=== PATIENT | female | born 1955 | race African-American/Black ===

== ENCOUNTER 2016-09-25 11:07 | Inpatient (IN) | payer MEDICAID ==
[~2016-09-25] VITALS: Ht 170.2 cm; Wt 102.1 kg
[2016-09-25] VITALS (10 sets, daily range): BP systolic 121–140
[~2016-09-25 11:07] MED LIST: AMOX500T2; ATOR80TA63 PO; CARI250T9 PO; CYCL7.5T20 PO; IBUP-1517 PO; IPRA4AER INH; LEVO175T7 PO; MULT-920 PO; NORT25CA30 PO; SERT-131 PO; TRAZ-126 PO
[2016-09-25] MEDS ORDERED: NACL 0.9% 1,000 ML IV ONE ×2 (11:45)
[2016-09-25] MEDS ORDERED: ONDANSETRON HCL 4 MG/2 ML VIAL IVP ONE (11:45)
[2016-09-25] MEDS ORDERED: INSULIN REGULAR, HUMAN 10 UNITS/0.1 ML INJ IVP ONE ×2 (11:45→13:00)
[2016-09-25 12:05] LABS: BASOPHILS # (AUTO) 0.4 K/uL (0.0-0.2); BASOPHILS % (AUTO) 3.2 % (0.0-2.0); EOSINOPHILS % (AUTO) 0.1 % (0.0-4.0); HEMATOCRIT 47.5 % (36-48); HEMOGLOBIN 14.9 g/dL (12.0-16.0); LYMPHOCYTES # (AUTO) 2.1 K/uL (1.0-5.5); MEAN CORPUSCULAR HEMOGLOBIN 28 pg (27-31); MEAN CORPUSCULAR HGB CONC 31 % (32-36); MEAN CORPUSCULAR VOLUME 89 fL (79.0-98.0); MONOCYTES # (AUTO) 0.8 K/uL (0.0-1.0); MONOCYTES % (AUTO) 6.2 % (1.7-9.3); NEUTROPHILS # (AUTO) 8.8 K/uL (1.8-7.7); NEUTROPHILS % (AUTO) 73.5 % (40.0-70.0); PLATELET COUNT (AUTO) 380 K/uL (130-430); RED BLOOD CELL COUNT(AUTO) 5.36 MIL/uL (4.2-6.2); RED CELL DISTRIBUTION WIDTH 13.5 % (9.0-15.0); WHITE BLOOD COUNT (AUTO) 12.1 K/uL (4.8-10.8)
[2016-09-25 12:15] LABS: ACETONE, SERUM NEGATIVE (NEGATIVE)
[2016-09-25 12:19] LABS: PROTHROMBIN TIME 10.8 SECS (9.5-12.5)
[2016-09-25 12:24] LABS: ALANINE AMINOTRANSFERASE 23 U/L (12-78); ALBUMIN 3.9 g/dL (3.4-4.8); ANION GAP 10 (5-15); ASPARTATE AMINOTRANSFERASE 13 U/L (10-37); CALCIUM 9.9 mg/dL (8.4-11.0); POTASSIUM 5.7 mmol/L (3.5-5.1); SODIUM SERUM 120 mmol/L (136-145); TOTAL BILIRUBIN 0.6 mg/dL (0.0-1.0); TOTAL PROTEIN, SERUM 8.3 g/dL (6.4-8.3); UREA NITROGEN, BLOOD 40 mg/dL (8-21)
[2016-09-25 12:37] LABS: CHLORIDE 85 mmol/L (98-107)
[2016-09-25 12:39] LABS: GLUCOSE 1280 mg/dL (70-99)
[2016-09-25] MEDS ORDERED: INSULIN REGULAR, HUMAN 100 UNITS in NS 99 ML IV ONE ×4 (13:00→14:00)
[2016-09-25 13:12] LABS: BILIRUBIN,URINE NEGATIVE (NEGATIVE); BLOOD, URINE NEGATIVE (NEGATIVE); CLARITY/URINE CLEAR (CLEAR); COLOR,URINE YELLOW (YELLOW); GLUCOSE,URINE 3+ (NEGATIVE); KETONES,URINE NEGATIVE (NEGATIVE); LEUKOCYTE ESTERASE ,URINE NEGATIVE (NEGATIVE); NITRITE, URINE NEGATIVE (NEGATIVE); PROTEIN URINE NEGATIVE (NEGATIVE); UROBILINOGEN,URINE 0.2 (0.2-1.0)
[2016-09-25 13:42] LABS: BACTERIA,URINE RARE /HPF (None Seen); RBC,URINE 0-3 /HPF (0-3); WBC,URINE 0-3 /HPF (0-3); YEAST,URINE Few /HPF (None Seen)
[2016-09-25] MEDS ORDERED: METF-305 PO (14:11)
[2016-09-25] MEDS ORDERED: HYDR25TA4 PO (14:11)
[2016-09-25] MEDS ORDERED: LEVO100T9 PO (14:11)
[2016-09-25] MEDS ORDERED: GLIP10TA11 PO (14:11)
[2016-09-25] MEDS ORDERED: ACETAMINOPHEN 325 MG TABLET PO PRN (16:00)
[2016-09-25] MEDS ORDERED: FLUCONAZOLE 200 MG TABLET (DIFLUCAN) PO ONE (16:00)
[2016-09-25] MEDS ORDERED: ONDANSETRON HCL 4 MG/2 ML VIAL IVP PRN (16:00)
[2016-09-25] MEDS ORDERED: ZOLPIDEM TARTRATE 5 MG TABLET PO PRN (16:00)
[2016-09-25] MEDS ORDERED: DEXTROSE 50% JECT 50 ML DISP.SYRIN IVP PRN (16:00)
[2016-09-25] MEDS ORDERED: POTASSIUM CHLORIDE 10 MEQ TAB.PRT.SR PO PRN (16:00)
[2016-09-25] MEDS ORDERED: DOCUSATE SODIUM 100 MG CAPSULE PO PRN (16:00)
[2016-09-25] MEDS ORDERED: MAGNESIUM SULFATE 50 ML IV PRN (16:00)
[2016-09-25] MEDS ORDERED: LORazepam 2 MG/ML VIAL IVP PRN (16:00)
[2016-09-25] MEDS: NACL 0.9% 1,000 ML IV SCH ×2 (16:28→23:25)
[2016-09-25 18:12] LABS: CALCIUM 9.5 mg/dL (8.4-11.0); CREATININE 1.25 mg/dL (0.55-1.30); POTASSIUM 4.3 mmol/L (3.5-5.1)
[2016-09-25] MEDS: HYDROcodone/ACETAMIN 5-325 MG TAB (NORCO/ VICODIN) PO PRN (18:22)
[2016-09-25] MEDS: HEPARIN SODIUM,PORCINE 5000 UNITS/ML VIAL SUBCUT SCH (20:18)
[2016-09-25] MEDS: INSULIN ASPART 100 UNITS/ML, 10 ML VIAL (NovoLOG) SUBCUT PRN (20:20)
[2016-09-26] VITALS (19 sets, daily range): BP systolic 113–135
[2016-09-26] MEDS: NACL 0.9% 1,000 ML IV SCH ×3 (06:15→22:31)
[2016-09-26] MEDS: INSULIN ASPART 100 UNITS/ML, 10 ML VIAL (NovoLOG) SUBCUT PRN ×4 (06:16→20:36)
[2016-09-26 06:52] LABS: BASOPHILS % (AUTO) 0.3 % (0.0-2.0); EOSINOPHILS # (AUTO) 0.1 K/uL (0.0-0.4); HEMATOCRIT 42.9 % (36-48); LYMPHOCYTES # (AUTO) 5.5 K/uL (1.0-5.5); LYMPHOCYTES % (AUTO) 44.5 % (20.5-51.5); MEAN CORPUSCULAR HEMOGLOBIN 29 pg (27-31); MEAN CORPUSCULAR HGB CONC 33 % (32-36); MEAN CORPUSCULAR VOLUME 87 fL (79.0-98.0); MONOCYTES # (AUTO) 0.6 K/uL (0.0-1.0); MONOCYTES % (AUTO) 4.5 % (1.7-9.3); NEUTROPHILS # (AUTO) 6.1 K/uL (1.8-7.7); NEUTROPHILS % (AUTO) 49.7 % (40.0-70.0); PLATELET COUNT (AUTO) 355 K/uL (130-430); RED BLOOD CELL COUNT(AUTO) 4.91 MIL/uL (4.2-6.2); RED CELL DISTRIBUTION WIDTH 12.8 % (9.0-15.0); WHITE BLOOD COUNT (AUTO) 12.3 K/uL (4.8-10.8)
[2016-09-26 07:10] LABS: CALCIUM 8.3 mg/dL (8.4-11.0); CREATININE 0.94 mg/dL (0.55-1.30); POTASSIUM 4.4 mmol/L (3.5-5.1)
[2016-09-26] MEDS: HYDROcodone/ACETAMIN 5-325 MG TAB (NORCO/ VICODIN) PO PRN ×2 (08:30→22:24)
[2016-09-26] MEDS: HEPARIN SODIUM,PORCINE 5000 UNITS/ML VIAL SUBCUT SCH ×2 (08:38→20:33)
[2016-09-26] MEDS: MORPHINE 2 MG/ML INJ. SYRINGE IVP PRN ×3 (10:06→19:33)
[2016-09-26] MEDS ORDERED: CYCLOBENZAPRINE HCL 10 MG TABLET (FLEXERIL) PO SCH (17:00)
[2016-09-26] MEDS ORDERED: traZODone HCL 50 MG TABLET (DESYREL) PO PRN (17:00)
[2016-09-26] MEDS: NORTRIPTYLINE HCL 25 MG CAPSULE PO SCH (20:30)
[2016-09-26] MEDS ORDERED: NON-FORMULARY MEDICATION (Metformin Hcl 1,000 MG) PO SCH (21:00)
[2016-09-26] MEDS: cefTRIAXone 1 GM in D5W 50 ML IV SCH (22:00)
[2016-09-26] MEDS ORDERED: cefTRIAXone 1 GM IVPB PREMIX 50 ML IV ONE (22:16)
[2016-09-26] MEDS: FLUCONAZOLE 200 MG TABLET (DIFLUCAN) PO SCH (22:23)
[2016-09-27] VITALS (7 sets, daily range): BP systolic 105–133
[2016-09-27] MEDS: MORPHINE 2 MG/ML INJ. SYRINGE IVP PRN ×3 (03:28→20:11)
[2016-09-27] MEDS: LEVOTHYROXINE SODIUM 0.1 MG TABLET PO SCH (05:55)
[2016-09-27] MEDS: INSULIN ASPART 100 UNITS/ML, 10 ML VIAL (NovoLOG) SUBCUT PRN ×4 (05:57→22:22)
[2016-09-27 07:11] LABS: BASOPHILS # (AUTO) 0.5 K/uL (0.0-0.2); BASOPHILS % (AUTO) 3.4 % (0.0-2.0); EOSINOPHILS # (AUTO) 0.2 K/uL (0.0-0.4); EOSINOPHILS % (AUTO) 1.4 % (0.0-4.0); HEMOGLOBIN 15.2 g/dL (12.0-16.0); LYMPHOCYTES % (AUTO) 44.6 % (20.5-51.5); MEAN CORPUSCULAR HEMOGLOBIN 28 pg (27-31); MEAN CORPUSCULAR HGB CONC 32 % (32-36); MEAN CORPUSCULAR VOLUME 87 fL (79.0-98.0); MONOCYTES # (AUTO) 0.6 K/uL (0.0-1.0); MONOCYTES % (AUTO) 4.4 % (1.7-9.3); NEUTROPHILS # (AUTO) 6.1 K/uL (1.8-7.7); NEUTROPHILS % (AUTO) 46.2 % (40.0-70.0); PLATELET COUNT (AUTO) 324 K/uL (130-430); RED CELL DISTRIBUTION WIDTH 12.8 % (9.0-15.0); WHITE BLOOD COUNT (AUTO) 13.4 K/uL (4.8-10.8)
[2016-09-27 07:21] LABS: CALCIUM 8.7 mg/dL (8.4-11.0); CREATININE 0.9 mg/dL (0.55-1.30); POTASSIUM 4.2 mmol/L (3.5-5.1)
[2016-09-27] MEDS: ATORVASTATIN 20 MG TABLET PO SCH (08:14)
[2016-09-27] MEDS: CARISOPRODOL 350 MG TABLET PO PRN ×2 (08:14→17:32)
[2016-09-27] MEDS: HEPARIN SODIUM,PORCINE 5000 UNITS/ML VIAL SUBCUT SCH ×2 (08:17→22:21)
[2016-09-27] MEDS: SERTRALINE HCL 50 MG TABLET PO SCH (08:23)
[2016-09-27] MEDS: NACL 0.9% 1,000 ML IV SCH ×2 (11:37→22:14)
[2016-09-27] MEDS: GABAPENTIN 300 MG CAPSULE PO SCH ×2 (15:03→22:15)
[2016-09-27] MEDS: cefTRIAXone 1 GM in D5W 50 ML IV SCH (22:15)
[2016-09-27] MEDS: FLUCONAZOLE 200 MG TABLET (DIFLUCAN) PO SCH (22:15)
[2016-09-27] MEDS: NORTRIPTYLINE HCL 25 MG CAPSULE PO SCH (22:16)
[2016-09-28] MEDS: NACL 0.9% 1,000 ML IV SCH ×2 (00:36→09:19)
[2016-09-28 04:28] VITALS: BP_SYST 143
[2016-09-28] MEDS: CARISOPRODOL 350 MG TABLET PO PRN (06:27)
[2016-09-28] MEDS: LEVOTHYROXINE SODIUM 0.1 MG TABLET PO SCH (06:27)
[2016-09-28] MEDS: INSULIN ASPART 100 UNITS/ML, 10 ML VIAL (NovoLOG) SUBCUT PRN ×2 (06:44→11:43)
[2016-09-28 07:27] LABS: BASOPHILS % (AUTO) 0.4 % (0.0-2.0); EOSINOPHILS # (AUTO) 0.2 K/uL (0.0-0.4); EOSINOPHILS % (AUTO) 1.3 % (0.0-4.0); HEMATOCRIT 43.2 % (36-48); HEMOGLOBIN 13.5 g/dL (12.0-16.0); LYMPHOCYTES # (AUTO) 3.9 K/uL (1.0-5.5); LYMPHOCYTES % (AUTO) 31.8 % (20.5-51.5); MEAN CORPUSCULAR HEMOGLOBIN 28 pg (27-31); MEAN CORPUSCULAR HGB CONC 31 % (32-36); MEAN CORPUSCULAR VOLUME 88 fL (79.0-98.0); MONOCYTES # (AUTO) 0.5 K/uL (0.0-1.0); MONOCYTES % (AUTO) 4.3 % (1.7-9.3); NEUTROPHILS # (AUTO) 7.5 K/uL (1.8-7.7); NEUTROPHILS % (AUTO) 62.2 % (40.0-70.0); PLATELET COUNT (AUTO) 309 K/uL (130-430); RED BLOOD CELL COUNT(AUTO) 4.92 MIL/uL (4.2-6.2); RED CELL DISTRIBUTION WIDTH 12.5 % (9.0-15.0); WHITE BLOOD COUNT (AUTO) 12.1 K/uL (4.8-10.8)
[2016-09-28 07:43] LABS: CALCIUM 8.4 mg/dL (8.4-11.0); CREATININE 0.99 mg/dL (0.55-1.30); POTASSIUM 4.2 mmol/L (3.5-5.1)
[2016-09-28 08:00] VITALS: BP_SYST 138
[2016-09-28] MEDS: SERTRALINE HCL 50 MG TABLET PO SCH (09:07)
[2016-09-28] MEDS: ATORVASTATIN 20 MG TABLET PO SCH (09:07)
[2016-09-28] MEDS: GABAPENTIN 300 MG CAPSULE PO SCH (09:08)
[2016-09-28] MEDS: HEPARIN SODIUM,PORCINE 5000 UNITS/ML VIAL SUBCUT SCH (09:10)
[2016-09-28] MEDS ORDERED: SITA100T7 PO (09:41)
[2016-09-28] MEDS ORDERED: METF1000 PO (09:41)
[2016-09-28] MEDS ORDERED: EXEN2VIA SQ (09:41)
[2016-09-28] MEDS ORDERED: GLIP10TA11 PO (09:41)
[2016-09-28] MEDS ORDERED: NEU100 PO (09:46)
[2016-09-28] MEDS ORDERED: LISI-209 PO (09:46)
[2016-09-28] MEDS ORDERED: ASPI-1063 PO (09:46)
[2016-09-28] MEDS ORDERED: LIP20 PO (09:48)
[2016-09-28 11:51] VITALS: BP_SYST 137
[2016-09-28 12:57] VITALS: BP_SYST 140
== END 2016-09-28 15:01 | disposition home or self-care (01) | DRG 420 ==
LOC: SED 11:07 → SIC 13:55 → SMU 09-26 18:00
PROVIDERS: ADMIT General Practice; ATTEND General Practice
DX: E11.00 Type 2 diabetes mellitus with hyperosmolarity without nonketotic hyperglycemic-hyperosmolar coma (NKHHC) (principal); N17.0 Acute kidney failure with tubular necrosis; B37.49 Other urogenital candidiasis; D68.59 Other primary thrombophilia; F11.20 Opioid dependence, uncomplicated; E83.41 Hypermagnesemia; E87.1 Hypo-osmolality and hyponatremia; E11.40 Type 2 diabetes mellitus with diabetic neuropathy, unspecified; E11.65 Type 2 diabetes mellitus with hyperglycemia; I10 Essential (primary) hypertension; E03.9 Hypothyroidism, unspecified; G89.29 Other chronic pain; F17.200 Nicotine dependence, unspecified, uncomplicated; Z79.899 Other long term (current) drug therapy; Z79.84 Long term (current) use of oral hypoglycemic drugs
CPT/HCPCS: 36415; 71010; 80048; 80053; 81000-TC; 82009-TC; 82962; 83036; 83735-TC; 83880; 84484; 85025; 85610-TC; 85730-TC; 87081; 93005; 96361; 96374; 96375; 96376; 99285; J0696; J1644; J1815; J2270; J2405; J7030; J7060

== ENCOUNTER 2017-07-09 09:06 | Emergency (ER) | payer MEDICAID ==
[~2017-07-09] VITALS: Ht 170.2 cm; Wt 90.7 kg
[~2017-07-09 09:06] MED LIST changes: -AMOX500T2; +ASPI-1063 PO; -ATOR80TA63 PO; -CARI250T9 PO; -CYCL7.5T20 PO; +EXEN2VIA SQ; +GLIP10TA11 PO; +HYDR25TA4 PO; -IBUP-1517 PO; -IPRA4AER INH; +LEVO100T9 PO; -LEVO175T7 PO; +LIP20 PO; +LISI-209 PO; +METF-305 PO; +METF1000 PO; -MULT-920 PO; +NEU100 PO; -NORT25CA30 PO; -SERT-131 PO; +SITA100T7 PO; -TRAZ-126 PO
[2017-07-09 09:28] VITALS: BP_SYST 118
[2017-07-09 10:14] LABS: BASOPHILS # (AUTO) 0.1 K/uL (0.0-0.2); BASOPHILS % (AUTO) 1.1 % (0.0-2.0); EOSINOPHILS # (AUTO) 0.1 K/uL (0.0-0.4); EOSINOPHILS % (AUTO) 0.9 % (0.0-4.0); HEMATOCRIT 46.8 % (36-48); HEMOGLOBIN 15.4 g/dL (12.0-16.0); LYMPHOCYTES # (AUTO) 4.6 K/uL (1.0-5.5); LYMPHOCYTES % (AUTO) 50.6 % (20.5-51.5); MEAN CORPUSCULAR HEMOGLOBIN 28 pg (27-31); MEAN CORPUSCULAR HGB CONC 33 % (32-36); MEAN CORPUSCULAR VOLUME 86 fL (79.0-98.0); MONOCYTES # (AUTO) 0.4 K/uL (0.0-1.0); MONOCYTES % (AUTO) 4.3 % (1.7-9.3); NEUTROPHILS # (AUTO) 3.9 K/uL (1.8-7.7); NEUTROPHILS % (AUTO) 43.1 % (40.0-70.0); PLATELET COUNT (AUTO) 407 K/uL (130-430); RED BLOOD CELL COUNT(AUTO) 5.43 MIL/uL (4.2-6.2); RED CELL DISTRIBUTION WIDTH 14.6 % (9.0-15.0); WHITE BLOOD COUNT (AUTO) 9.1 K/uL (4.8-10.8)
[2017-07-09 10:26] LABS: CREATININE 1.23 mg/dL (0.55-1.30); POTASSIUM 3.8 mmol/L (3.5-5.1); PROTHROMBIN TIME 9.7 SECS (9.5-12.5)
[2017-07-09 10:41] LABS: ALBUMIN 3.8 g/dL (3.4-4.8); FREE T4 (FREE THYROXINE) 0.2 ng/dL (0.6-1.6); TOTAL BILIRUBIN 0.4 mg/dL (0.0-1.0)
[2017-07-09 11:18] VITALS: BP_SYST 122
== END 2017-07-09 11:18 | disposition home or self-care (01) ==
LOC: SED 09:06
DX: E03.9 Hypothyroidism, unspecified (principal); E11.9 Type 2 diabetes mellitus without complications; I10 Essential (primary) hypertension; M54.30 Sciatica, unspecified side; Z79.899 Other long term (current) drug therapy
CPT/HCPCS: 36415; 71045; 74018; 80053; 83880; 84439; 84484; 85025; 85610-TC; 93005; 99285